=== PATIENT | female | born 1945 | race Caucasian/White ===

== ENCOUNTER 2017-07-09 12:30 | Emergency (ER) | payer MEDICARE ==
[~2017-07-09] VITALS: Ht 158.8 cm; Wt 93.4 kg
[2017-07-09 13:13] LABS: BASOPHILS # (AUTO) 0.1 (0.0-0.1); BASOPHILS % 0.5 % (0.0-1.0); EOSINOPHILS # (AUTO) 0.1 (0.0-0.4); EOSINOPHILS % 0.8 % (0.0-6.0); HEMATOCRIT 36.5 % (34.2-44.1); LYMPHOCYTES # (AUTO) 0.9 (1.0-3.2); LYMPHOCYTES % 7.9 % (18.0-39.1); MEAN CORPUSCULAR HGB CONC 32.9 g/dL (31-35); MEAN CORPUSCULAR VOLUME 88.2 fL (81-99); MONOCYTES # (AUTO) 0.8 (0.2-0.8); MONOCYTES % 6.8 % (4.4-11.3); NEUTROPHILS # (AUTO) 9.6 (2.1-6.9); NEUTROPHILS % 83.7 % (38.7-80.0); PLATELET COUNT 420 x10e3/uL (140-360); RED BLOOD COUNT 4.14 x10e6/uL (3.6-5.1); RED CELL DISTRIBUTION WIDTH 12.5 % (11.7-14.4)
[2017-07-09 13:16] LABS: BILIRUBIN,URINE 1+ (NEGATIVE); KETONES,URINE 2+ (NEGATIVE); LEUKOCYTE ESTERASE ,URINE 1+ (NEGATIVE); NITRITE,URINE NEGATIVE (NEGATIVE); URINE UROBILINOGEN 0.2 mg/dL (0.2 - 1)
[2017-07-09 13:18] LABS: CLARITY,URINE CLOUDY (CLEAR); COLOR,URINE RED (YELLOW); PROTEIN,URINE DIPSTICK 2+ (NEGATIVE)
[2017-07-09 13:22] LABS: INR 1.24; PROTHROMBIN TIME 14.7 seconds (11.9-14.5)
[2017-07-09 13:23] LABS: PARTIAL THROMBOPLASTIN TIME 29.9 seconds (23.8-35.5)
[2017-07-09 13:29] LABS: ALBUMIN 2.6 g/dL (3.5-5.0); ALBUMIN/GLOBULIN RATIO 0.6 (0.8-2.0); ANION GAP 15.8 mmol/L (8-16); CALCIUM 8.5 mg/dL (8.4-10.2); CREATININE, SERUM 0.93 mg/dL (0.57-1.11); POTASSIUM 3.8 mmol/L (3.5-5.1)
[2017-07-09 13:34] LABS: RBC,URINE >50 /HPF (0-5)
[2017-07-09 13:38] LABS: EPITHELIAL CELLS,URINE FEW /LPF
[2017-07-09 13:39] LABS: WBC,URINE (MAN) 21-50 /HPF (0-5)
--- NOTE | 2017-07-09 15:24 | Diagnostic Imaging Report ---
EXAM: Transabdominal and Transvaginal Pelvic Ultrasound INDICATION: \S\vag bleed r/o fibroids COMPARISON: None TECHNIQUE: Grayscale transverse and sagittal transabdominal and transvaginal images were obtained of the pelvis. Transvaginal imaging was medically necessary to better evaluate the endometrium and the adnexa. CLINICAL HISTORY: 72 year old A0; last menstrual period: Postmenopausal since age of 48. FINDINGS: Uterus Orientation: Normal Size: 10.9 x 6 x 3.3 cm, Normal Mass: Heterogeneous myometrium with multiple punctate echogenic foci. Faint hypoechoic area in the mid uterus body measuring 1.9 x 1.4 x 2.0 cm suggestive of intramural fibroid. Echogenic structure in the right uterus measuring 1.5 x 1.4 x 1.9 cm may represent a degenerative fibroid. Cervix: Normal Endometrium: Thickness: No well-visualized Right ovary: No well-visualized Left ovary: No well-visualized Adnexa: Normal Cul-de-sac: No free fluid IMPRESSION: 1. Heterogeneous appearance of the uterus is suggestive of leiomyomatosis and may explain this patient's vaginal bleeding. 2. Small faint hypoechoic and hyperechoic structures within the myometrium may represent small fibroids. Signed by: Dr. Mague Carter M.D. on 07/09/2017 3:21 PM
[2017-07-09 16:12] VITALS: BP 147/62
== END 2017-07-09 16:30 | disposition home or self-care (01) ==
LOC: ER 12:30 → EDSEX 12:30 → ER 16:30
DX: N93.9 Abnormal uterine and vaginal bleeding, unspecified (principal); D25.9 Leiomyoma of uterus, unspecified
CPT/HCPCS: 36415; 76830; 80053; 81001; 85025; 85610; 85730; 86850; 86900; 99284